=== PATIENT | female | born 1950 | race Caucasian/White ===

== ENCOUNTER → 2016-11-25 | Outpatient (CLI) | payer BC ==
--- NOTE | 2016-11-26 14:24 | MAMMOGRAPHY REPORT ---
BILATERAL DIGITAL SCREENING MAMMOGRAM WITH CAD: 11/25/2016 CLINICAL HISTORY: Routine screening. Patient has no complaints. TECHNIQUE: Bilateral CC and MLO views were obtained. Current study was also evaluated with a Comput er Aided Detection (CAD) system. COMPARISON: Comparison is made to exams dated: 01/17/2014 mammogram, 11/25/2012 mammogram, 11/24/2011 mammogram, 11/08/2009 [facility], 10/06/2008, and 10/05/2007. BREAST COMPOSITION: The tissue of both breasts is heterogeneously dense, which may obscure small ma sses. FINDINGS: There are scattered stable round and punctate microcalcifications bilaterally. No suspici ous mass, architectural distortion or cluster of microcalcifications is seen. IMPRESSION: ACR BI-RADS CATEGORY 1: NEGATIVE There is no mammographic evidence of malignancy. A 1 year screening mammogram is recommended. The p atient will receive written notification of the results. Approximately 10% of breast cancers are not detected with mammography. A negative mammographic repor t should not delay biopsy if a clinically suggestive mass is present. Aura Marroquin M.D. ay/:11/25/2016 16:08:33 Garage Door Installer: Saray SHAFFER(Marion)(Steve)(BD), [facility] letter sent: Normal 1/2 BI-RADS Code: ACR BI-RADS Category 1: Negative
== END | disposition home or self-care (01) ==
LOC: C.MAMM 13:50
PROVIDERS: ATTEND Nurse Practitioner Family
DX: Z12.31 Encounter for screening mammogram for malignant neoplasm of breast (principal)

== ENCOUNTER 2024-12-20 03:23 | Inpatient (IN) ==
[2024-12-20 03:46] LABS: Basophils # (auto) 0.08 K/uL (0.00-0.20); Basophils % (auto) 0.5 %; Eosinophils # (auto) 0.15 K/uL (0.00-0.50); Hematocrit (blood only) 43.9 % (37.0-47.0); Hemoglobin 14.5 g/dl (12.0-16.0); Immature Granulocytes # (auto) 0.15 K/uL (0.01-0.20); Lymphocytes # (auto) 4.38 K/uL (1.20-3.40); Lymphocytes % (auto) 28.2 %; Mean Corpuscular Hemoglobin 30.3 pg (25.0-34.0); Mean Corpuscular Volume 91.8 fL (80.0-100.0); Mean Platelet Volume 9.3 fL (9.4-12.4); Monocytes # (auto) 0.85 K/uL (0.11-0.59); Monocytes % (auto) 5.5 %; Neutrophils # (auto) 9.93 K/uL (1.40-6.50); Neutrophils % (auto) 63.8 %; Nucleated RBC # (auto) 0.06 K/uL (0.00-0.12); Nucleated RBC % (auto) 0.4 %; Platelet Count 182 K/uL (130-400); RDW Coefficient of Variation 12.4 % (11.5-14.5); RDW Standard Deviation 42.5 fL (36.4-46.3); Red Blood Count 4.78 M/uL (4.20-5.40); White Blood Count 15.54 K/ul (4.8-10.8)
[2024-12-20] MEDS ORDERED: RAPID SEQUENCE INDUCTION BAG ONE (03:47)
[2024-12-20 03:57] LABS: Alanine Aminotransferase 245 U/L (7-52); Albumin Globulin Ratio 1.6 (0.9-2); Albumin Level 4.5 gm/dl (3.4-5.0); Alkaline Phosphatase 57 U/L (34-104); Anion Gap 11 (3-11); Aspartate Aminotransferase 195 U/L (13-39); BUN Creatinine Ratio 25.5 (10-20); Bilirubin,Total 0.5 mg/dl (0.2-1.0); Blood Urea Nitrogen 24 mg/dl (6-23); Calcium 9.2 mg/dl (8.6-10.3); Carbon Dioxide 24 mmol/L (21-32); Chloride 107 mmol/L (98-107); Globulin 2.9 gm/dl (2.5-4.0); Glucose 230 mg/dl (70-99(Fasting)); Lipase 34 U/L (11-82); Potassium 3.8 mmol/L (3.5-5.1); Sodium 142 mmol/L (136-145); Total Protein 7.4 gm/dl (6.0-8.3)
[2024-12-20 04:04] LABS: Troponin I High Sensitivity 39.2 pg/ml (0-14)
[2024-12-20] MEDS ORDERED: ETOMIDATE 2 MG/ML 20 ML VIAL IV ONE (04:09)
[2024-12-20] MEDS ORDERED: MAG SULFATE 50% 1GM/2ML VIAL IV ONE (04:09)
[2024-12-20] MEDS ORDERED: ADENOSINE IV SOLN 3 MG/ML 2 ML VIAL IV ONE (04:09)
[2024-12-20] MEDS ORDERED: SODIUM BICARB 8.4% INJ 50 MEQ/50 ML SYR IV ONE (04:09)
[2024-12-20] MEDS ORDERED: NOREPINEPHRINE BITARTRATE 1 MG/ML 4 ML VIAL IV ONE (04:09)
[2024-12-20] MEDS ORDERED: SUCCINYLCHOLINE CHLORIDE 20 MG/ML 10 ML VIAL IV ONE (04:09)
[2024-12-20] MEDS ORDERED: SODIUM CHLORIDE 0.9% 10ML FLUSH IV ONE (04:09)
--- NOTE | 2024-12-20 04:10 | Emergency Department Note ---
Impression & Plan Cardiogenic shock, ST elevation (STEMI) myocardial infarction involving left anterior descending coronary artery, Transaminitis, Cardiac arrest ED Provider Note Provider: Andres Lujan MD CHIEF COMPLAINT: Chest pain, collapse HISTORY OF PRESENT ILLNESS: Patient is a 74-year-old female reportedly healthy evidently woke up middle the night taking care of the dogs with sudden onset of significant chest pain with nausea. [place] weak. Brought by immediately here for evaluation. Collapsed in waiting room while first registering. No pulse and taken emergently to room A1 CPR and ACLS initiated. and later discussion reports she is otherwise healthy. No additional history due to patient's critical nature and STEMI/cardiac arrest. PAST MEDICAL HISTORY: As noted above MEDICATIONS: None reported SOCIAL HISTORY: non-smoker PHYSICAL EXAM: GENERAL: alert to verbal stimuli at times occasionally moving on the stretcher. CPR in progress. Head: normocephalic and atraumatic EYES: No injection, discharge or icterus. NECK: Trachea midline. ENT: Mucous membranes moist and slightly pale LUNGS: Airway patent. No retractions. Breath sounds clear with good air entry bilaterally. HEART: No palpable pulse initially. [place] and ashen in color. ABDOMEN: Soft without obvious mass or distention SKIN: Warm dry some slight distal peripheral cyanosis. Ashen in color. EXTREMITIES: Without swelling, tenderness or deformity NEUROLOGICAL: Occasionally moving all extremities. Intermittently following commands but nonverbal initially later awakens and does talk some EK bpm sinus rhythm. Some artifact with what appears to be lead I and V1 through V3 ST segment elevation as well as some elevation in aVL. QTc 415. Repeat EKG later obtained with evidence of increasing ST segment elevation. CONTINUOUS CARDIAC MONITORING: was ordered and showed a heart rate of 50s-90s bpm in sinus rhythm/sinus bradycardia/V-fib/V. tach Patient's laboratory studies and imaging reviewed. Differential includes Cardiac ischemia, aortic dissection, pulmonary embolism, electrolyte abnormality, acidosis, tension pneumothorax, hypothermia, hypovolemia, intracranial event, cardiac tamponade, as well as other pathologies. IMPRESSION/MEDICAL DECISION MAKING: From triage brought to A1. CPR ACLS initiated IV access obtained. Several 200 J electric shocks for cardioversion for V-fib V. tach completed with conversion to sinus rhythm. EKG obtained concerning for ST segment elevation. 300 mg of amiodarone and 2 g of magnesium sulfate ordered and a liter of normal saline ordered. Heart alert initiated. Second EKG confirmed significant ST segment elevation. Patient awake and alert after electrical cardioversion following commands. Denies chest pain. Denies significant nausea. Quick chest x-ray obtained at that time maybe a little bit of haziness over the right lung but no obvious pneumothorax or significantly widened mediastinum noted. Updated patient's . Shortly thereafter the patient had repetitive episodes of recurrent V. tach/V-fib. Multiple rounds of CPR and electrical cardioversions as well as an additional 150 mg of amiodarone (total 450mg) to 100 mg of IV lidocaine were administered. Additional 2 g of magnesium ordered. During this period patient initially intermittently following commands but quickly this begins to diminish in nature. BVM and then proceeded with intubation as below without obvious complication. Interventional cardiology soon arrived to bedside. Continued ACLS with CPR and recurrent electrical cardioversion completed. Ag device placed for continued CPR support but the patient does have return of circulation and a palpable pulse. Cardiology has consented to proceed with cardiac catheterization and the patient proceeded to the Customer Resource Specialist (with ROSC and dopamine drip started). Basic blood work is sent. Does later returned with concerns for cardiac injury and possibly some early changes of LFTs for possible shock liver. DIAGNOSIS: Cardiac arrest, STEMI, V. tach/V-fib DISPOSITION: To the cardiac catheterization lab for further care. Later assisted Customer Resource Specialist with transfer after 2 stents placed in the LAD for cardiogenic shock Impella was placed. Discussed with cardiology team (Shabana) at [facility] [address] and [facility] to transfer patient via helicopter for further care at tertiary center. Patient updated and agreeable with this plan. Critical Care I have personally spent 75 minutes of critical care time in the direct management of this patient. This includes bedside care, interpretation of diagnostic studies, and testing, discussion with consultants, patient, and family members, and other required patient management activities. These 75 minutes is in excess of all separately billable procedures. ED Intubation performed by myself Indication cardiac arrest/V-fib/V. tach The patient was on 100% oxygen via NRB prior to the procedure. Suction, airway equipment, RSI drugs, respiratory equipment, and appropriate personnel were prepared prior to the initiation of the procedure. Induction performed with 20 mg of etomidate and 100 mg of succinylcholine as she was clenching her jaw. CPR and ACLS in progress for her V-fib V. tach cardiac arrest. After observing the clinical benefit of the medications, the airway was easily visualized utilizing a S3 GlideScope 2 attempts due to secretions and some blood in oropharynx. A 7.0 size ETT tube was placed atraumatically to 22 cm using standard technique. The cuff inflated without signs of malfunction. There were bilateral breath sounds, positive colormetric change and no gastric sounds. Post intubation end-tidal in the 60s. No apparent complications and the patient shortly there after intubation has ROSC. Past Med/Surg History Problem List (Updated 12/20/24 @ 06:45 by Andres Lujan M.D.) Cardiac arrest (Acute) Transaminitis (Acute) Cardiogenic shock (Acute) ST elevation (STEMI) myocardial infarction involving left anterior descending coronary artery (Acute) STEMI (ST elevation myocardial infarction) Medical History Nausea and vomiting after administration of anesthetic agent 13 years ago after facelift No known health problems Surgical History History of breast biopsy benign History of facelift History of right cataract extraction History of root canal procedure History of tonsillectomy and adenoidectomy History of tooth extraction Family History Sister Family history of reaction to anesthesia nausea/vomiting Mother Family history of reaction to anesthesia nausea/vomiting Social History Smoking Status: Never smoker Second Hand Exposure: No; Do You Dip or Chew Tobacco: No; Hx Alcohol Use: Yes Alcohol type: wine Hx Substance Use: No Preferred Language: Barbadian Communication Ability: Effective Javascript Ui Developer Required: No Beliefs That Will Affect Care: None Current Living Situation: Spouse Feels Safe at Home: Yes Assistive Devices: None Allergies Allergies Allergy/AdvReac Type Severity Reaction Status Date / Time No Known Allergies Allergy Verified 09/15/23 07:07 Home Meds Home Medications Medication Instructions Recorded Confirmed amino acids (Amino Acid capsule) 1 cap PO QAM 07/27/23 09/07/23 cholecalciferol (vitamin D3) 125 125 mcg PO QAM 07/27/23 09/07/23 mcg (5,000 unit) tablet (Vitamin D3) magnesium 500 mg tablet 500 mg PO BID 07/27/23 09/07/23 omega-3 fatty acids 1,000 mg PO QAM 07/27/23 09/07/23 Results & Data (ED) Vital Signs Vital Signs - 24 hr 12/20/24 03:32 12/20/24 04:17 12/20/24 04:30 Pulse Rate 92 H Respiratory Rate 26 H Pulse Oximetry 80 L Oxygen Delivery Method Fraction of Inspired Oxygen 100 Sepsis New/Unexplained Change in Mental Status No Sepsis Action Taken by Nursing No Action Required 12/20/24 05:19 Pulse Rate Respiratory Rate Pulse Oximetry Oxygen Delivery Method Mechanical Vent Fraction of Inspired Oxygen Sepsis New/Unexplained Change in Mental Status Sepsis Action Taken by Nursing Laboratory Data 12/20/24 03:31 12/20/24 03:31 Lab Results 12/20/24 Range/Units 03:31 WBC 15.54 H (4.8-10.8) K/ul RBC 4.78 (4.20-5.40) M/uL Hgb 14.5 (12.0-16.0) g/dl Hct 43.9 (37.0-47.0) % MCV 91.8 (80.0-100.0) fL MCH 30.3 (25.0-34.0) pg MCHC 33.0 (32.0-36.0) g/dL RDW Std Deviation 42.5 (36.4-46.3) fL RDW Coeff of Mauricio 12.4 (11.5-14.5) % Plt Count 182 (130-400) K/uL MPV 9.3 L (9.4-12.4) fL Immature Gran % (Auto) 1.0 % Neut % (Auto) 63.8 % Lymph % (Auto) 28.2 % [place] % (Auto) 5.5 % Eos % (Auto) 1.0 % Baso % (Auto) 0.5 % Neut # (Auto) 9.93 H (1.40-6.50) K/uL Lymph # (Auto) 4.38 H (1.20-3.40) K/uL [place] # (Auto) 0.85 H (0.11-0.59) K/uL Eos # (Auto) 0.15 (0.00-0.50) K/uL Baso # (Auto) 0.08 (0.00-0.20) K/uL Immature Gran # (Auto) 0.15 (0.01-0.20) K/uL Absolute Nucleated RBC 0.06 (0.00-0.12) K/uL Nucleated RBC % (auto) 0.4 % PT 11.1 (9.0-12.0) Seconds INR 1.0 (0.9-1.1) APTT 24 (21-31) Seconds PTT Ratio 0.9 Sodium 142 (136-145) mmol/L Potassium 3.8 (3.5-5.1) mmol/L Chloride 107 (98-107) mmol/L Carbon Dioxide 24 (21-32) mmol/L Anion Gap 11 (3-11) BUN 24 H (6-23) mg/dl Creatinine 0.94 (0.6-1.2) mg/dl Est Cr Clr Drug Dosing Not Reportable eGFR 64.47 BUN/Creatinine Ratio 25.5 H (10-20) Glucose 230 H (70-99(Fasting)) mg/dl Calcium 9.2 (8.6-10.3) mg/dl Total Bilirubin 0.5 (0.2-1.0) mg/dl AST 195 H (13-39) U/L ALT 245 H (7-52) U/L Alkaline Phosphatase 57 (34-104) U/L Troponin I High Sens 39.2 H (0-14) pg/ml Total Protein 7.4 (6.0-8.3) gm/dl Albumin 4.5 (3.4-5.0) gm/dl Globulin 2.9 (2.5-4.0) gm/dl Albumin/Globulin Ratio 1.6 (0.9-2) Lipase 34 (11-82) U/L Discharge Plan Visit Data Chief Complaint: Chest Pain Stated Complaint: CHEST PAIN,DRY HEAVES,DIARRHEA ED Provider: Andres Lujan Discharge Problem: Cardiogenic shock, ST elevation (STEMI) myocardial infarction involving left anterior descending coronary artery, Transaminitis, Cardiac arrest Patient Disposition: Transfer Acute Care Hospital Discharge Instructions Interventions: ED Discharge Assessment Last Done: 12/20/24 05:19
[2024-12-20] MEDS: SODIUM BICARB 8.4% INJ 50 MEQ/50 ML SYR IV ONE (04:15)
[2024-12-20 04:22] LABS: Partial Thromboplastin Ratio 0.9; Partial Thromboplastin Time 24 Seconds (21-31); Prothrombin Time 11.1 Seconds (9.0-12.0)
[2024-12-20] MEDS: NOREPINEPHRINE/D5W 4 MG/250 ML IV ONE ×2 (04:23→05:45)
[2024-12-20] MEDS: AMIODARONE 150MG / 100ML D5W (CATH LAB USE ONLY) IV ONE (04:28)
[2024-12-20] MEDS: AMIODARONE 360MG / 200ML D5W (CATH LAB USE ONLY) IV ONE ×2 (04:30→07:46)
[2024-12-20] MEDS: AMIODARONE HCL INJ 50 MG/ML 3 ML VIAL (CATH LAB USE ONLY) IV ONE (04:30)
[2024-12-20] MEDS: MAGNESIUM SULFATE 1GM / D5W BAG IV ONE (04:30)
[2024-12-20] MEDS: fentaNYL citrate PF 100 MCG/2 ML VIAL ONE (04:30)
[2024-12-20] MEDS: EPINEPHrine INJ 1 MG/ML AMP ONE ×3 (04:35→07:43)
[2024-12-20] MEDS: HEPARIN (PORCINE) 1000 UNIT/ML 10 ML (CATH LAB USE ONLY) ONE ×2 (04:45→07:41)
--- NOTE | 2024-12-20 04:52 | Critical Care Consultation ---
Date of Consultation December 20, 2024 Assessment & Plan (1) ST elevation (STEMI) myocardial infarction involving left anterior descending coronary artery: (2) Cardiogenic shock: (3) Transaminitis: Plan Transfer to tertiary care History of Present Illness Reason for Consultation: STEMI, cardiogenic shock Requesting Physician: Baron Attending Physician: Clifton Draper MD History of Present Illness Patient is a 74YOF with no significant past medical history who presented to [facility] at 0330 due to chest pain, nausea, and dizziness upon waking up to let her dogs out. Patient collapsed and sustained cardiac arrest in the ED lobby. Initial EKG showed anterolateral STEMI. During arrest her rhythm was predominantly VT then VF. She received amiodarone 450mg, lidocaine 100mg, Mg, Ca, and bicarbonate. See Code Documentation and Dr. Lujan's note for details. ROSC was achieved and patient was transferred emergently to cardiac catheterization lab where at the time the this dictation she has undergone JAZMINE to LAD x2, Impella CP being placed by Dr. Draper. Labs thus far reveal leukocytosis, elevated transaminases, and mildly elevated glucose. She is being arranged for transfer to [facility] for continuation of care. Allergies Allergy/AdvReac Type Severity Reaction Status Date / Time No Known Allergies Allergy Verified 09/15/23 07:07 Home Medications Medication Instructions Recorded Confirmed Type amino acids (Amino Acid capsule) 1 cap PO QAM 07/27/23 09/07/23 History cholecalciferol (vitamin D3) 125 125 mcg PO QAM 07/27/23 09/07/23 History mcg (5,000 unit) tablet (Vitamin D3) magnesium 500 mg tablet 500 mg PO BID 07/27/23 09/07/23 History omega-3 fatty acids 1,000 mg PO QAM 07/27/23 09/07/23 History Patient History Medical History Nausea and vomiting after administration of anesthetic agent 13 years ago after facelift No known health problems Surgical History History of breast biopsy benign History of facelift History of right cataract extraction History of root canal procedure History of tonsillectomy and adenoidectomy History of tooth extraction Family History Sister Family history of reaction to anesthesia nausea/vomiting Mother Family history of reaction to anesthesia nausea/vomiting Social History Smoking Status: Never smoker Second Hand Exposure: No; Do You Dip or Chew Tobacco: No; Hx Alcohol Use: Yes Alcohol type: wine Hx Substance Use: No Preferred Language: Thai Communication Ability: Effective Engraving Plate Maker Required: No Beliefs That Will Affect Care: None Current Living Situation: Spouse Feels Safe at Home: Yes Assistive Devices: None Review of Systems Review of Systems: Unobtainable due to endotracheal tube Physical Exam Constitutional: + ill appearing and + mechanically venti lated Eyes: PERRL, conjunctivae normal, anicteric sclerae ENMT: ETT in place. Otherwise not assessed. Neck: trachea midline, no thyromegaly Respiratory: Symmetric chest rise. Exam is limited by instability thus I did not auscultate the patient's lungs or heart Cardiovascular: Exam is limited by instability thus I did not auscultate the patient's lungs or heart Gastrointestinal (Abdomen): Normal on inspection. Not auscultated. No obvious abnormalities. Skin: Skin is mottled to mid thighs. No peripheral edema noted. Capillary refill delayed Neurologic: Prior to intubation the patient was oriented x3, lethargic, but able to relay her 's name before arresting again. Genitourinary: Deferred. No obvious abnormalities on visual inspection. Results & Data Results & Data Vital Signs (Past 12 Hours) Vital Signs Pulse 12/20/24 03:32 92 H Laboratory Results Reviewed Diagnostic Findings Reviewed Medications Administered See MAR. Coding Level of Care Code 99873 CRITICAL CARE 1ST 30-74M Diagnoses ST elevation (STEMI) myocardial infarction involving left anterior descending coronary artery I21.02 Cardiogenic shock R57.0 Transaminitis R74.01
[2024-12-20] MEDS: FUROSEMIDE 40 MG/4 ML VIAL IV ONE (05:15)
[2024-12-20] MEDS: DOBUTamine 1000 MG/250ML D5W IV ONE (05:31)
--- NOTE | 2024-12-20 05:51 | Post Operative Brief Note ---
Cardiology Brief Post Op Date of Surgery December 20, 2024 Pre & Post Diagnosis VF Arrest AMI Cardiogenic shock ST Procedure CPR Ultrasound guided vascular access Coronary angiography PCI to LAD with 2 JAZMINE Impella placement Right heart catheterization Track Moving Machine Operator Clifton Draper MD Psych Np Power Operator Estimated Blood Loss 1,000 Findings Consistent with Post-Op Diagnosis 100% proximal LAD No other significant non-culprit disease Successful PCI of proximal to mid LAD with 2 JAZMINE (3.0 x 15 Xience, 3.0 x 22 [place]; post-dilated with 3.5 NC). Successful Impella CP placement RA 10, PA 29/18 (21), PCW 11, LVEDP 20 on norepi, epinephrine and Impella at auto Anesthesia Type RN Sedation Complications none Disposition Accompanied Patient To Recovery: Yes
[2024-12-20] MEDS ORDERED: STAT IV Infusion **Titration per Protocol STA (06:21)
[2024-12-20] MEDS: VASOPRESSIN 20 UNITS in SODIUM CHLORIDE 0.9% 100 ML IV SCH (06:45)
--- NOTE | 2024-12-20 06:49 | Cardiac Catheterization ---
[facility] Data: [facility] Cardiac Status Clinical evaluation leading to the procedure CAD Presenation: STEMI Anginal Classification: CCS IV Diagnostic Physicians Name: Clifton Draper MD Closure Device Recommendations: PCI without planned CABG Cardiac Cath Procedure Full Procedure Date December 20, 2024 Pre-Procedure Diagnosis Pre-Procedure Diagnosis: STEMI AUC Score AUC Score: 9 Post-Procedure Diagnosis Post-Procedure Diagnosis: Severe CAD, Unsuccessful PCI and Elevated Intracardiac Pressures Procedure(s) Performed Procedure(s) Performed: Coronary Angiography, Left Heart Cath, Drug Eluting Stent, CPR, Defibrillation and Procedure (Impella CP) Scrum Coach Clifton Draper MD Instrument Installer(s) Terminal Manager Estimated Blood Loss Estimated Blood Loss: 1000ml Medication(s) Medication(s): Epinephrine, Fentanyl, Heparin, Integrilin, Lidocaine 1%, Nicardipine, Nitroglycerin, Norepinephrine and Versed Summary of Findings Indication: STEMI/Heart Alert Presented to the ED with chest pain and had witnessed arrest in waiting room with subsequent ECGs showing anterolateral ST elevations. Underwent multiple rounds of CPR, defibrillation's in ED. On arrival to [facility] CPR device in place, recurrent VF requiring multiple defibrillation while prepping patient. Access: 6 Fr right SUPERVISOR LIVESTOCK YARD under ultrasound guidance, 7 Fr right CFV. 14 Fr short Impella sheath RT SUPERVISOR LIVESTOCK YARD Catheters: JR4 guide, EBU 3.5 guide, pigtail, 7 Fr [place] Findings: LM -normal caliber, no significant disease LAD -medium to large caliber, 100% proximal LAD occlusion Circumflex -large caliber, no significant disease RCA -dominant, medium caliber, no significant disease -- PCI -- Antithrombotic therapy: Heparin, bolus Integrilin Procedure: Left main cannulated with EBU 3.5 guide BMW wire passed across lesion into distal vessel Proximal LAD lesion predilated with 2.5 compliant balloon Dilated lesion stented with 3.0 x 22 mm Farhat JAZMINE extending across takeoff of large D1 into mid segment Second JAZMINE (3.0 x 18 mm Xience) placed to proximal LAD overlapping proximal aspect of initial stent Stents post-dilated with 3.5 noncompliant balloon Post stents JENIFER 3 flow, stents well expanded with minimal residual stenosis and no apparent edge complications After initial balloon inflation and again following initial stent placement recurrent VF requiring multiple defibrillations and CPR. Following completion of PCI electrically stable but escalating pressor requirements on high-dose norepinephrine, epinephrine. Decision to proceed with Impella. 6 Fr right SUPERVISOR LIVESTOCK YARD sheath exchanged for 14 Fr Impella sheath over a stiff wire. Aortic valve crossed with pigtail and exchanged for 018 wire. Impella CP device placed across aortic valve and left and auto level. Right heart cath after Impella placement RA 10 PA 29/18 (21) PAWP 11 LV 20 PaSat 38% AoSat 80% Oswaldo CO/CI 4.5/2.5 Worsened hypotension with trial of dobutamine. Procedure complicated by ongoing bleeding from ETT tube, Post procedure 1 canister full of serosanguineous fluid. Received 1 U PRBC while awaiting transfer. Started on vasopressin in addition to high dose norepinephrine, epinephrine. Summary: 1. Anterior STEMI/100% proximal LAD occlusion 2. No significant non-culprit coronary artery disease 3. Cardiogenic shock 4. Cardiac arrest/Recurrent VT/VF 5. Borderline left and right sided intracardiac filling pressures 6. Successful PCI of proximal to mid LAD with 2 overlapping JAZMINE (3.0 x 18 Archie nce; 3.0 x 22 Farhat; post-dilated with 3.5 NC). 7. Successful Impella CP placement Recommendations: Transfer to [facility] cardiac ICU for additional hemodynamic support Hemodynamics Rest Ao:: 61/43/51 Final Ao: 75/52/67 LV: 77/20 Recommendations Recommendations: PCI without planned CABG Specimens Specimens: None Radiation Exposure (mGy) 2152 Contrast (mls) 170 Anesthesia Moderate Procedural Complication(s) None Disposition [facility] I attest to the content of the Intraoperative Record and any orders documented therein. Any exceptions are noted below. [facility] Card Cath Procedure Codes Cardiac Catheterization Procedure 1: Cardiovascular Cath Procedures: 18799 Coronaries & LHC (+/-LV) & RHC Therapeutic Services & Ancillary Procedure 1: Cardiovascular Tx and Anc Procedures: 89846 Insertion of Percutaneous Ventricular Assist Device Procedure 2: Cardiovascular Tx and Anc Procedures: 87002 Code Blue/CPR Procedure 3: Cardiovascular Tx and Anc Procedures: 10499 Ultrasonic Guidance Vascular Access Procedure 4: Cardiovascular Tx and Anc Procedures: 50314 Insertion Central Venous Catheter Moderate Sedation Procedure 1: Sedation/Anesthesia: 49244 Mod Sedation by the same physician;Init15 Min Child Age 5 & Up Procedure 2: Sedation/Anesthesia: 41736 Mod Sedation by the same physician; Ea [id number] Minutes Stenting Procedure 1: Cardiovascular Stent Procedures: 89083 Perc transluminal revascularization of acute sub/total occl, aMI PG Care Time/CCT Total # of Minutes Spent Total Time Spent with Patient: Total time spent is greater than 50% in coordination of care (as documented) at patient's floor/unit and/or counseling patient:
[2024-12-20] MEDS: OPTIRAY 350 ONE (07:25)
[2024-12-20] MEDS: niCARdipine HCL INJ 2.5 MG/ML 10 ML AMP ONE (07:26)
[2024-12-20] MEDS: MIDAZOLAM HCL 1 MG/ML 2ML VIAL ONE (07:28)
[2024-12-20] MEDS: NITROGLYCERIN/D5W 100MCG/ML 20ML SYR ONE (07:30)
[2024-12-20] MEDS: PHENYLEPHRINE 100MCG/ML 5ML SYR ONE (07:45)
[2024-12-20] MEDS: fentaNYL citrate 2,500 MCG/250 ML BAG IV ONE (07:46)
--- NOTE | 2024-12-20 08:58 | Cardiology Consultation ---
Date of Consultation December 20, 2024 Assessment & Plan (1) ST elevation (STEMI) myocardial infarction involving left anterior descending coronary artery: Presentation consistent with Acute DE with VF arrest and cardiogenic shock. Recommend proceeding with emergent cardiac catheterization and likely primary PCI, possible mechanical hemodynamic support. Discussed procedure with . Further recommendations pending findings of coronary angiography. History of Present Illness Attending Physician: Clifton Draper MD History of Present Illness Mrs. Hyatt is 74 year old woman with no significant past medical history seen emergently in the ED in the setting of Acute DE, VT/VF cardiac arrest and cardiogenic shock. Per report from ED staff, had sudden onset of chest pain this AM with associated nausea/weakness. Brought to ED by and collapsed in ED triage. Intubated, CPR and multiple defibrillations in ED. EKG with ROSC showed anterolateral ST elevation. At time of arrival receiving active CPR with brief periodic ROSC. With ROSC responsive. Taken to analytical lab technician emergently. Allergies Allergy/AdvReac Type Severity Reaction Status Date / Time No Known Allergies Allergy Verified 09/15/23 07:07 Home Medications Medication Instructions Recorded Confirmed Type amino acids (Amino Acid capsule) 1 cap PO QAM 07/27/23 09/07/23 History cholecalciferol (vitamin D3) 125 125 mcg PO QAM 07/27/23 09/07/23 History mcg (5,000 unit) tablet (Vitamin D3) magnesium 500 mg tablet 500 mg PO BID 07/27/23 09/07/23 History omega-3 fatty acids 1,000 mg PO QAM 07/27/23 09/07/23 History Patient History Medical History Nausea and vomiting after administration of anesthetic agent 13 years ago after facelift No known health problems Surgical History History of breast biopsy benign History of facelift History of right cataract extraction History of root canal procedure History of tonsillectomy and adenoidectomy History of tooth extraction Family History Sister Family history of reaction to anesthesia nausea/vomiting Mother Family history of reaction to anesthesia nausea/vomiting Social History Smoking Status: Never smoker Second Hand Exposure: No; Do You Dip or Chew Tobacco: No; Hx Alcohol Use: Yes Alcohol type: wine Hx Substance Use: No Preferred Language: Korean Communication Ability: Effective Chairperson Anesthesiology Required: No Beliefs That Will Affect Care: None Current Living Situation: Spouse Feels Safe at Home: Yes Assistive Devices: None Physical Exam Constitutional: well developed Eyes: + anicteric sclerae Respiratory: Auscultation: lungs clear to auscultation bilaterally Cardiovascular: Rate/Rhythm: + irregularly irregular Skin: no rashes Neurologic: Cranial Nerves: PERRL Psychiatric: Orientation: + not alert Results & Data Vital Signs (Past 12 Hours) Vital Signs Pulse Resp Pulse Ox O2 Del Method FiO2 12/20/24 05:19 Mechanical Vent 12/20/24 04:30 26 H 80 L 100 12/20/24 03:32 92 H PG Care Time/CCT Total # of Minutes Spent Total Time Spent with Patient: Total time spent is greater than 50% in coordination of care (as documented) at patient's floor/unit and/or counseling patient: Coding Level of Care Code 49624 OFFICE CONSULT LVL M Diagnoses ST elevation (STEMI) myocardial infarction involving left anterior descending coronary artery I21.02
[2024-12-20 09:57] LABS: iSTAT Arterial Blood Gas HCO3 24 meg/L (19-24); iSTAT Arterial Blood Gas pCO2 78 mmHg (35-46); iSTAT Arterial Blood Gas pH 7.09 (7.35-7.45); iSTAT Arterial Blood Gas pO2 38 mmHg (80-95); iSTAT Carbon Dioxide 26 mmol/L (24-31); iSTAT Hematocrit 25 % (37-47); iSTAT Hemoglobin 8.5 g/dl (12.0-16.0); iSTAT Potassium 2.5 mmol/L (3.3-5.0); iSTAT Sodium 143 mmol/L (135-144)
[2024-12-20 09:57] LABS: iSTAT Arterial Blood Gas HCO3 16 meg/L (19-24); iSTAT Arterial Blood Gas pCO2 57 mmHg (35-46); iSTAT Arterial Blood Gas pH 7.05 (7.35-7.45); iSTAT Arterial Blood Gas pO2 67 mmHg (80-95); iSTAT Carbon Dioxide 17 mmol/L (24-31); iSTAT Hematocrit 33 % (37-47); iSTAT Hemoglobin 11.2 g/dl (12.0-16.0); iSTAT Potassium 3.4 mmol/L (3.3-5.0); iSTAT Sodium 130 mmol/L (135-144)
--- NOTE | 2024-12-20 22:09 | Electrocardiogram Report ---
Test Reason : Blood Pressure : */* mmHG Vent. Rate : 108 BPM Atrial Rate : * BPM P-R Int : 168 ms QRS Dur : 92 ms QT Int : 310 ms P-R-T Axes : * 6 10 degrees QTcB Int : 415 ms Poor data quality, interpretation may be adversely affected Sinus tachycardia Septal infarct ST elevation, lateral STEMI ACUTE AK / STEMI Abnormal ECG No previous ECGs available Confirmed by Mauri Lujan ([id number]) on 12/20/2024 10:08:50 PM Referred By: Confirmed By: Mauri Lujan
--- NOTE | 2024-12-20 22:10 | Electrocardiogram Report ---
Test Reason : Blood Pressure : */* mmHG Vent. Rate : 91 BPM Atrial Rate : 92 BPM P-R Int : 222 ms QRS Dur : 92 ms QT Int : 362 ms P-R-T Axes : 67 -16 0 degrees QTcB Int : 445 ms Sinus rhythm with 1st degree A-V block ST elevation consider anterior injury or acute infarct ACUTE CA / STEMI Abnormal ECG When compared with ECG of 20-Dec-2024 03:31, ST more depressed Inferior leads ST more elevated in Lateral leads Confirmed by Mauri Lujan ([id number]) on 12/20/2024 10:09:51 PM Referred By: REFERRED SELF Confirmed By: Mauri Lujan
--- NOTE | 2024-12-21 07:51 | XRay Report ---
EXAM: XR chest 1V portable CLINICAL HISTORY: Chest pain, nonspecific. TECHNIQUE: An X-ray image of the chest is obtained in AP projection. COMPARISON: No prior studies are available for comparison. FINDINGS: Pulmonary Parenchyma: Diffuse airspace opacification of right lung field. noted. Increase broncho-vascular markings of both lung manzano. No pulmonary nodules are identified. No evidence of significant pleural effusion. Heart and Mediastinum: Cardiomegaly with congested sean and dilated unfolded aorta. No mediastinal widening or masses. No hilar or mediastinal lymphadenopathy. Bony Thorax: Bony thorax appears intact without fractures or deformities. Soft Tissues: Soft tissues overlying the chest wall are unremarkable. IMPRESSION: 1. Diffuse airspace opacification of right lung field, likely pneumonic consolidation. The possibility of underlying posterior pleural effusion cannot be excluded totally. CT chest is advised. 2. Cardiomegaly with congested sean and dilated unfolded aorta. Electronically signed by Diana Whitfield 12-20-2024 04:28 AM
== END 2024-12-20 08:00 | disposition home or self-care (01) | DRG 215 ==
LOC: ED 03:23 → CC 04:08 → PACUINP 07:04 → CC 08:00
PROC: CLB.CPR (2024-12-20 03:45)
PROC: CLB.CRH (2024-12-20 03:45)